=== PATIENT | male | born 1960 | race African-American/Black ===

== ENCOUNTER 2018-03-26 09:08 | Emergency (ER) | payer MEDICAID, SELFPAY ==
[2018-03-26 09:11] VITALS: BP 163/91; PULSE 74; RESP 18; TEMP 36.9; O2SAT 99; BMI 23.7
--- NOTE | 2018-03-26 11:01 | ED.VISSUMM ---
- ER Visit Summary Date of Service: 03/26/18 Chief Complaint: Needs dialysis History of Present Illness: The patient is a 58 M presenting due to a need for coordination of dialysis care. Patient is from [place] typically gets dialysis on Wednesdays and Fridays but had to come up to [place] for a family emergency. He denies any symptoms at this time. Physical Examination: Physical exam unremarkable and noted in the template. Palpable thrill from the patient's left sided fistula Test Results: None indicated Emergency Department Course and Treatment: Patient presented for coordination of dialysis care. We were able to set the patient up with a dialysis center in [facility]. Patient will follow up with her as directed. Disposition: Discharge Impression: 1. End-stage renal disease This note was generated with [employer] dictation software. It may contain incorrect words, spelling, and punctuation that were not noted in review of the chart prior to signing ED Disposition - Plan for ED Patient: Disposition: Home or Assisted Living Chief Complaint: Other, Pain/Inj Diagnosis: End stage renal disease Instructions: ED Dialysis Hemo
[2018-03-26 11:23] VITALS: RESP 16
== END 2018-03-26 11:30 | disposition home or self-care (01) ==
PROVIDERS: Emergency Provider Emergency Medicine
DX: N18.6 End stage renal disease (principal); I45.10 Unspecified right bundle-branch block
CPT/HCPCS: 99282

== ENCOUNTER 2019-07-10 17:22 | Emergency (ER) | payer MEDICAID, SELFPAY ==
[2019-07-10 17:22] VITALS: BP 155/86; PULSE 78; RESP 16; TEMP 36.7; O2SAT 100; BMI 19.1
--- NOTE | 2019-07-10 18:33 | ED.VISSUMM ---
- ER Visit Summary Date of Service: 07/10/19 Chief Complaint: Dialysis fistula: Stop bleeding History of Present Illness: The patient is a 59 M who is a poor informant. He is unsure who his practical nurse clinical coordinator or primary care physician is. He reports that he had a full round of dialysis today. When I took the catheter it would not stop bleeding. He is not on blood thinners. He denies any complaints. Physical Examination: Vitals: Stable. Afebrile. General: Well-nourished and well-developed. Head: Normocephalic atraumatic. Neck: Supple, no lymphadenopathy. No JVD. Nontender. Cardiovascular: Regular rate and rhythm. No murmurs. Respiratory: No respiratory distress. Clear to auscultation bilaterally. Abdominal: Soft, nontender, nondistended, normal bowel sounds. No guarding, rebound, or peritoneal signs. Back: Nontender. Extremities: Nontender, no edema. Dressing over the fistula in his left arm was removed. There is a puncture into the fistula without active bleeding. There is a pulse and thrill here. Skin: Normal color, no rash. Neurologic: Alert and oriented ?3. Cranial nerves II through XII are intact. Normal strength and sensation. Psych: Normal affect. Emergency Department Course and Treatment: Patient had a clean sterile dressing placed. There is still no bleeding. Is been observed over the course of hours while he is waiting for a ride and still has no bleeding. Treatment Plan: Patient will be discharged instructions to follow-up with his practical nurse clinical coordinator in 1 to 2 days if not improving. Return to the emergency department for any worsening symptoms. Disposition: To home in improved and stable condition. Impression: 1. Bleeding from fistula left arm, resolved. This note was generated with [employer] software. It may contain incorrect words, spelling, and punctuation that were not noted in review of the chart prior to signing ED Disposition - Plan for ED Patient: Disposition: Home or Assisted Living Instructions: Dialysis Shunt (Fistula) Bleeding Referrals: Doctor,Your [STAFF PHYSICIAN] - 1-2 Days if not improving
--- NOTE | 2019-07-10 18:53 | ED.RN ---
Talked with Linda at [facility] in [place]. They are working on finding a ride for the pt.
--- NOTE | 2019-07-10 20:42 | ED.RN ---
This RN called [facility] to try and arrange transportation back to [facility]. [employer] is unable to verify his identity because we have the wrong phone and address. PT has a [place] address listed in our system, the dialysis paperwork has a different address and phone number as well. Updated PTS RN. Called and spoke with Linda at [facility] who will speak with her billing person (she's in the office now) and will have her update his information with Emil. [employer] is 3rd alliance party and is unable to update information.
--- NOTE | 2019-07-10 20:45 | ED.RN ---
Prior to calling [facility], PT did speak with his daughter for a ride home. He is unsure if she will come and pick him up and requested us to try [facility]. Pt did say that his daughter would call me back when she gets closer.
[2019-07-10 21:22] VITALS: RESP 18
--- NOTE | 2019-07-10 21:48 | ED.RN ---
Linda called from [facility] stating that she has gotten another facility employee to come back to work to get their company vehicle and then they will come to [facility] to pick pt up.
--- NOTE | 2019-07-10 21:52 | ED.RN ---
[facility] facility member came to pick pt up.
== END 2019-07-10 21:53 | disposition home or self-care (01) ==
LOC: ED 18:08
PROVIDERS: Emergency Provider Emergency Medicine
DX: T82.838A Hemorrhage due to vascular prosthetic devices, implants and grafts, initial encounter (principal); I13.2 Hypertensive heart and chronic kidney disease with heart failure and with stage 5 chronic kidney disease, or end stage renal disease; E11.22 Type 2 diabetes mellitus with diabetic chronic kidney disease; N18.6 End stage renal disease; I50.9 Heart failure, unspecified; Z99.2 Dependence on renal dialysis
CPT/HCPCS: 99284